=== PATIENT | female | born 1975 | race Caucasian/White ===

== ENCOUNTER 2019-03-26 14:51 | Emergency (ER) | payer MEDICARE ==
--- NOTE | 2019-03-26 16:33 | EDM.PDOC ---
ED HPI GENERAL MEDICAL PROBLEM - General Chief Complaint: Abdominal Pain Stated Complaint: RIGHT SIDE BACK PAIN Time Seen by Provider: 03/26/19 16:33 - History of Present Illness INITIAL COMMENTS - FREE TEXT/NARRATIVE: 43-year-old female presents to the emergency room with abdominal pain. This is been ongoing for several weeks now. [facility] They are trying to get her in for a HIDA scan. Patient's been taken Tums and Pepcid, gets most relief from the Pepcid. Tylenol did not offer any benefit. She denies any fevers or chills some nausea no vomiting. The pain does not seem to be related to eating but she has a diminished appetite. She is not noticed any black or tarry stools. 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: Neurological History: Reports: Seizure Other Neuro History: pseudo tumors Oncologic (Cancer) History: Reports: Malignant Melanoma - Past Surgical History HEENT Surgical History: Reports: Myringotomy w Tube(s) Female Surgical History: Reports: Hysterectomy Social & Family History - Family History Family Medical History: Noncontributory - Tobacco Use Smoking Status *Q: Current Every Day Smoker Years of Tobacco use: 15 Packs/Tins Daily: 0.5 - Caffeine Use Caffeine Use: Reports: Energy Drinks - Recreational Drug Use Recreational Drug Use: No - Living Situation & Occupation Living situation: Reports: , with Spouse, with Family Occupation: Disabled ED ROS GENERAL - Review of Systems Review Of Systems: See Below Constitutional: Reports: No Symptoms HEENT: Reports: No Symptoms Respiratory: Reports: No Symptoms Cardiovascular: Reports: No Symptoms GI/Abdominal: Reports: Abdominal Pain, Anorexia, Nausea. Denies: Constipation, Diarrhea, Vomiting : Reports: No Symptoms Musculoskeletal: Reports: No Symptoms ED EXAM, GI/ABD - Physical Exam Exam: See Below Exam Limited By: No Limitations General Appearance: Alert, No Apparent Distress Head: Atraumatic, Normocephalic Neck: Normal Inspection, Supple, Non-Tender, Full Range of Motion Respiratory/Chest: No Respiratory Distress, Lungs Clear, Normal Breath Sounds Cardiovascular: Regular Rate, Rhythm, No Edema, No Murmur GI/Abdominal Exam: Normal Bowel Sounds, Soft, Tender (Tenderness across the upper abdomen seems to be worse in the epigastric and left upper quadrant areas) . No: Non-Tender, Guarding, Rigid, Rebound Back Exam: Normal Inspection. No: CVA Tenderness (L), CVA Tenderness (R) Course - Vital Signs Last Recorded V/S: Last Vital Signs Temp 37.1 C 03/26/19 15:09 Pulse 61 03/26/19 21:12 Resp 19 03/26/19 21:12 BP 143/98 H 03/26/19 21:12 Pulse Ox 94 L 03/26/19 21:12 - Orders/Labs/Meds Labs: Laboratory Tests 03/26/19 Range/Units 17:40 Urine Color Yellow (Yellow) Urine Appearance Clear (Clear) Urine pH 5.5 (5.0-8.0) Ur Specific [place] > or = 1.030 (1.005-1.030) Urine Protein Negative (Negative) Urine Glucose (UA) Negative (Negative) Urine Ketones 1+ H (Negative) Urine Occult Blood Trace-lysed H (Negative) Urine Nitrite Negative (Negative) Urine Bilirubin Negative (Negative) Urine Urobilinogen 0.2 (0.2-1.0) Ur Leukocyte Esterase Negative (Negative) Urine RBC 0-5 (0-5) /hpf Urine WBC 0-5 (0-5) /hpf Ur Epithelial Cells 0-5 (0-5) /hpf Urine Bacteria Few (FEW) /hpf Urine Mucus Few (FEW) /hpf Meds: Medications Discontinued Medications Generic Name Dose Route Start Last Admin Trade Name Freq PRN Reason Stop Dose Admin Fentanyl 50 mcg 03/26/19 17:40 03/26/19 18:09 Sublimaze IVPUSH 03/26/19 17:41 50 mcg ONETIME ONE Administration Fentanyl 50 mcg 03/26/19 19:42 03/26/19 19:48 Sublimaze IVPUSH 03/26/19 19:43 50 mcg ONETIME ONE Administration Lactated Ringer's 1,000 mls @ 999 mls/hr 03/26/19 17:40 03/26/19 18:08 Ringers, Lactated IV 03/26/19 18:40 999 mls/hr .BOLUS ONE Administration Lactated Ringer's 1,000 mls @ 999 mls/hr 03/26/19 17:42 03/26/19 19:17 Ringers, Lactated IV 03/26/19 18:42 999 mls/hr .BOLUS ONE Administration Ondansetron HCl 4 mg 03/26/19 17:40 03/26/19 18:09 Zofran IVPUSH 03/26/19 17:41 4 mg ONETIME ONE Administration Sucralfate 1 gm 03/26/19 20:44 03/26/19 21:09 Carafate PO 03/26/19 20:45 1 gm ONETIME ONE Administration - Re-Assessments/Exams Free Text/Narrative Re-Assessment/Exam: 03/26/19 20:45 Since exam is most consistent with right upper quadrant pain however she he does have some epigastric and left upper quadrant discomfort with palpation as well a GI cocktail did not seem to help much. Her labs done from [facility] yesterday show white count of 9200 elevated hemoglobin hematocrit at 16.6 and 47.8% respectively slightly elevated mean corpuscular hemoglobin at 32.6 and an elevated red cell distribution width at 48.2 trees are essentially unremarkable anion gap is up at 20 we did give her some IV fluids we were able to get a gallbladder ultrasound done which was essentially unremarkable no wall thickening no stones identified no other abnormalities appreciated. At this point will focus on treatment dyspepsia with the understanding that if this does not help she should have a nuclear medicine bladder study done to look at gallbladder function in the meantime the patient will continue Pepcid 20 mg twice daily and will start Carafate 4 times daily Departure - Departure Time of Disposition: 20:48 Disposition: Home, Self-Care 01 Clinical Impression: Upper abdominal pain - Discharge Information Prescriptions: Acetaminophen/HYDROcodone [Palmer 325-5 MG] 1 tab PO Q6H PRN #10 tablet PRN Reason: Abdominal Pain Sucralfate [Carafate] 1 gm PO ASDIRECTED #60 tablet Instructions: Abdominal Pain, Adult, [id number] Referrals: Mariluz Rivas CPR INSTRUCTOR [Primary Care Provider] - Forms: ED Department Discharge Additional Instructions: Return to the emergency room with any questions problems or worsening symptoms. Use the Carafate as directed. Use the hydrocodone only as needed for pain. Follow-up in the clinic in 2 days for recheck. Sepsis Event Note - Evaluation Sepsis Screening Result: No Definite Risk - Focused Exam Date Exam was Performed: 03/28/19 Time Exam was Performed: 06:28
[2019-03-26] MEDS ORDERED: Lactated Ringers 1,000 ML IV ONE ×2 (17:40→17:42)
[2019-03-26] MEDS ORDERED: Ondansetron 4 MG/2 ML SDV IVPUSH ONE (17:40)
[2019-03-26] MEDS ORDERED: fentaNYL 100 MCG/2 ML SDV IVPUSH ONE ×2 (17:40→19:42)
--- NOTE | 2019-03-26 19:43 | US ---
Limited abdominal ultrasound: Multiple real-time images of the upper right abdomen were obtained. Comparison: No prior abdominal imaging. Liver shows no focal parenchymal abnormality. Gallbladder contains no shadowing gallstones. No gallbladder wall thickening or biliary duct dilatation is seen. Visualized portions of the pancreas are within normal limits. Right kidney shows no hydronephrosis or mass. Right kidney has a length of 10.3 cm. Impression: 1. No abnormality is identified on right upper quadrant abdominal ultrasound exam. Diagnostic code #1 This report was dictated in [place] Standard Time
[2019-03-26] MEDS ORDERED: Sucralfate Suspension 1 GM/10 ML Cup PO ONE (20:44)
[2019-03-26 21:24] VITALS: BP 143/98; PULSE 61
== END 2019-03-26 21:12 | disposition home or self-care (01) ==
LOC: JD.ED 14:51
DX: R10.11 Right upper quadrant pain (principal); R10.13 Epigastric pain; R10.12 Left upper quadrant pain; F17.210 Nicotine dependence, cigarettes, uncomplicated; Z88.5 Allergy status to narcotic agent; Z88.6 Allergy status to analgesic agent
CPT/HCPCS: 76705; 81001; 96361; 96374; 96375; 96376; 99284; A9270; J2405; J3010; J7120; 99283

== ENCOUNTER 2020-10-27 16:02 | Emergency (ER) | payer BC, MEDICARE ==
[2020-10-27 16:20] VITALS: BP 197/101; PULSE 77
[2020-10-27] MEDS: Sodium Chloride 0.9% 10 ML Syringe FLUSH PRN (16:56)
--- NOTE | 2020-10-27 17:31 | CR ---
Chest: PA view of the chest was obtained. Comparison: Prior chest x-ray of 03/25/19. Heart size and mediastinum are within normal limits. Lungs are clear with no acute parenchymal change. No acute osseous abnormality is appreciated. Impression: 1. Nothing acute is seen on PA chest x-ray. Diagnostic code #1
--- NOTE | 2020-10-27 17:31 | CR ---
Abdomen: Supine view of the abdomen was obtained. Comparison: No prior abdominal x-ray is available. Bowel gas pattern is normal. Bony structures are within normal limits for the patient's age. Calcifications are noted within the pelvis most likely representing multiple phleboliths. No discrete soft tissue abnormality is seen. Impression: 1. Nothing acute is seen on supine abdominal x-ray. Diagnostic code #1
--- NOTE | 2020-10-27 18:39 | EDM.PDOC ---
ED HPI GENERAL MEDICAL PROBLEM - General Chief Complaint: Chest Pain Stated Complaint: LEFT SIDE NECK/ARM PAIN AND CHEST TIGHTNESS Time Seen by Provider: 10/27/20 16:19 Source of Information: Reports: Patient History Limitations: Reports: No Limitations - History of Present Illness INITIAL COMMENTS - FREE TEXT/NARRATIVE: 45 old female presents emergency department today with complaints of sudden onset chest pressure with bilateral shoulder pain and periumbilical abdominal pain. Patient states that this started abruptly while she was at work today. She denies any previous cardiac history. She describes the pain in her chest as a pressure just under her sternum. She states that she initially developed periumbilical pain that radiated up into her epigastric area. She also equates onset of the abdominal pain with bilateral shoulder achiness. Patient states she is otherwise healthy and does not take any prescription medications other than medicinal marijuana for which she takes for seizures. She does admit to smoking a pack a day for the past 20 years. She denies any history of hypertension. 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: Neurological History: Reports: Seizure Other Neuro History: pseudotumor cerebri Oncologic (Cancer) History: Reports: Malignant Melanoma - Past Surgical History HEENT Surgical History: Reports: Myringotomy w Tube(s) GI Surgical History: Reports: Appendectomy Female Surgical History: Reports: Hysterectomy Social & Family History - Family History Family Medical History: No Pertinent Family History - Tobacco Use Tobacco Use Status *Q: Current Every Day Tobacco User Years of Tobacco use: 35 Packs/Tins Daily: 1 - Caffeine Use Caffeine Use: Reports: Energy Drinks - Recreational Drug Use Recreational Drug Use: Yes Drug Use in Last 12 Months: Yes Recreational Drug Type: Reports: Marijuana/Hashish Recreational Drug Use Frequency: Daily - Living Situation & Occupation Living situation: Reports: , with Spouse, with Family Occupation: Disabled ED ROS GENERAL - Review of Systems Review Of Systems: Comprehensive ROS is negative, except as noted in HPI. ED EXAM, GENERAL - Physical Exam Exam: See Below Exam Limited By: No Limitations General Appearance: Alert, WD/WN, No Apparent Distress Ears: Normal External Exam, Hearing Grossly Normal Nose: Normal Inspection Throat/Mouth: Normal Inspection, Normal Lips, Normal Voice, No Airway Compromise Head: Atraumatic, Normocephalic Neck: Normal Inspection, Supple Respiratory/Chest: No Respiratory Distress, Lungs Clear, Normal Breath Sounds, No Accessory Muscle Use, Chest Non-Tender Cardiovascular: Normal Peripheral Pulses, Regular Rate, Rhythm, No Edema, No Murmur Peripheral Pulses: 2+: Radial (L), Radial (R) GI/Abdominal: Normal Bowel Sounds, Soft, Non-Tender, No Distention (Female) Exam: Deferred Rectal (Female) Exam: Deferred Back Exam: Normal Inspection Extremities: Normal Inspection, No Pedal Edema Neurological: Alert, Oriented, Normal Cognition Psychiatric: Normal Affect, Normal Mood Skin Exam: Warm, Dry, Intact, Normal Color, No Rash Lymphatic: No Adenopathy #1 Interpretation EKG Date: 10/27/20 Time: 16:17 Rhythm: NSR Rate (Beats/Min): 77 Kimberly: Normal P-Wave: Present QRS: Normal ST-T: Normal QT: Normal Comparison: NA - No Prior EKG EKG Interpretation Comments: Per Dr. Lomeli interpretation: Sinus rhythm at 77 bpm; anteroseptal infarct, age indeterminate Course - Vital Signs Text/Narrative:: As stated above, patient presents with sudden onset periumbilical pain radiating up under her sternum causing a sensation of pressure in her chest. She also notes that she feels like her heart is flip flopping in her chest. Upon exam, patient assessment is unremarkable. She states that she has a dull pressure noted to the middle of her chest that has since eased up. I have ordered labs to include a CBC, CMP, magnesium level, troponin, EKG and a portable chest x- ray. Last Recorded V/S: Last Vital Signs Temp 97.8 F 10/27/20 16:18 Pulse 77 10/27/20 16:18 Resp 16 10/27/20 16:18 BP 197/101 H 10/27/20 16:18 Pulse Ox 98 10/27/20 16:18 - Orders/Labs/Meds Orders: Active Orders 24 hr Category Date Time Status UA W/MICROSCOPIC [URIN] Stat Lab 10/27/20 18:26 Results Sodium Chloride 0.9% [Saline Flush] Med 10/27/20 16:39 Active 10 ml FLUSH ASDIRECTED PRN Saline Lock Insert [OM.PC] Stat Oth 10/27/20 16:39 Ordered Medication Orders Sodium Chloride (Sodium Chloride 0.9% 10 Ml Syringe) 10 ml FLUSH ASDIRECTED PRN PRN Reason: Keep Vein Open Last Admin: 10/27/20 16:56 Dose: 10 ml Documented by: JALEEL Labs: Laboratory Tests 10/27/20 10/27/20 10/27/20 Range/Units 16:30 16:30 18:26 WBC 4.20 (3.98-10.04) K/mm3 RBC 4.65 (3.98-5.22) M/mm3 Hgb 14.4 (11.2-15.7) gm/dl Hct 43.0 (34.1-44.9) % MCV 92.5 D (79.4-94.8) fl MCH 31.0 (25.6-32.2) pg MCHC 33.5 (32.2-35.5) g/dl RDW Std Deviation 45.5 (36.4-46.3) fL Plt Count 225 (182-369) K/mm3 MPV 11.4 (9.4-12.3) fl Neut % (Auto) 35.3 (34.0-71.1) % Lymph % (Auto) 57.1 H (19.3-51.7) % [place] % (Auto) 6.9 (4.7-12.5) % Eos % (Auto) 0.5 L (0.7-5.8) Baso % (Auto) 0.2 (0.1-1.2) % Neut # (Auto) 1.48 L (1.56-6.13) K/mm3 Lymph # (Auto) 2.40 (1.18-3.74) K/mm3 [place] # (Auto) 0.29 (0.24-0.36) K/mm3 Eos # (Auto) 0.02 L (0.04-0.36) K/mm3 Baso # (Auto) 0.01 (0.01-0.08) K/mm3 Sodium 143 (136-145) mEq/L Potassium 3.4 L (3.5-5.1) mEq/L Chloride 105 (98-107) mEq/L Carbon Dioxide 24 (21-32) mEq/L Anion Gap 17.4 H (5-15) BUN 11 (7-18) mg/dL Creatinine 0.6 (0.55-1.02) mg/dL Est Cr Clr Drug Dosing 90.29 mL/min Estimated GFR (MDRD) > 60 (>60) mL/min BUN/Creatinine Ratio 18.3 H (14-18) Glucose 96 (70-99) mg/dL Calcium 8.7 (8.5-10.1) mg/dL Magnesium 1.9 (1.8-2.4) mg/dL Total Bilirubin 0.2 (0.2-1.0) mg/dL AST 25 (15-37) U/L ALT 41 (14-59) U/L Alkaline Phosphatase 53 (46-116) U/L Troponin I < 0.017 (0.00-0.056) ng/mL C-Reactive Protein < 0.2 (<1.0) mg/dL Total Protein 7.7 (6.4-8.2) g/dl Albumin 4.2 (3.4-5.0) g/dl Globulin 3.5 gm/dL Albumin/Globulin Ratio 1.2 (1-2) TSH 3rd Generation 3.159 (0.358-3.74) uIU/mL Urine Color Yellow (Yellow) Urine Appearance Clear (Clear) Urine pH 6.0 (5.0-8.0) Ur Specific [place] > or = 1.030 (1.005-1.030) Urine Protein Negative (Negative) Urine Glucose (UA) Negative (Negative) Urine Ketones 3+ H (Negative) Urine Occult Blood Trace-intact H (Negative) Urine Nitrite Negative (Negative) Urine Bilirubin Negative (Negative) Urine Urobilinogen 0.2 (0.2-1.0) Ur Leukocyte Esterase Negative (Negative) Meds: Medications Generic Name Dose Route Start Last Admin Trade Name Freq PRN Reason Stop Dose Admin Sodium Chloride 10 ml 10/27/20 16:39 10/27/20 16:56 Sodium Chloride 0.9% 10 Ml Syringe FLUSH 10 ml ASDIRECTED PRN Administration Keep Vein Open Discontinued Medications Generic Name Dose Route Start Last Admin Trade Name Airam PRN Reason Stop Dose Admin Al Hydroxide/Mg Hydroxide 30 0 ml 10/27/20 18:33 10/27/20 18:41 ml/ Lidocaine HCl 15 ml PO 10/27/20 18:34 45 ml ONETIME ONE Administration Potassium Chloride 40 meq 10/27/20 18:34 10/27/20 18:42 Potassium Chloride 20 Meq Tab.Er PO 10/27/20 18:35 40 meq ONETIME ONE Administration - Re-Assessments/Exams Free Text/Narrative Re-Assessment/Exam: 10/27/20 19:07 Hematology reveals a WBC of 4.20, hemoglobin 14.4, hematocrit 43.0, platelet count 225 Chemistry reveals a sodium of 143, potassium 3.4, carbon dioxide 24, anion gap 17.4, BUN 11, creatinine 0.6, glucose 96, magnesium 1.9, troponin less than 0.017, C-reactive protein less than 0.2 Urinalysis shows 3+ ketones and a trace of occult blood Radiologist impression PA view of the chest: 1. Nothing acute is seen on PA chest x-ray Radiologist impression supine view of the abdomen: 1. Nothing acute is seen on supine abdominal x-ray. I did discuss the lab results with the patient and I suggest she is having an esophageal spasm. I am going to order a GI cocktail to see if this helps with the discomfort. Patient states that she needs to get home to her kids and feed them supper. I will let her be discharged home with recommendations that if the GI cocktail relieves her discomfort that she start taking either Prevacid or Prilosec OTC daily and to follow-up with her primary care provider. She was agreeable to this plan. Departure - Departure Time of Disposition: 18:34 Disposition: Home, Self-Care 01 Condition: Good Clinical Impression: Atypical chest pain Referrals: Mariluz Rivas AREA CAPTAIN [Primary Care Provider] - Forms: ED Department Discharge Additional Instructions: You were seen in the emergency department today with complaints of chest pressure, bilateral shoulder pain and abdominal pain. Full cardiac work-up was completed which included labs, chest x-ray and an EKG. these were all unremarkable except your potassium level was slightly low. You were given a combination of medicines of viscous lidocaine with Maalox to see if that helps the discomfort in your chest. If the discomfort resolves from this medication, it is recommended that you start taking Prilosec or Protonix daily. Both of these medications are sold [id number]. You were given potassium pill while in the emergency department. Recommend you take this with your dinner meal this evening as your potassium levels were slightly low. Try to eat a diet rich in potassium fluids such as bananas or green leafy vegetables. Should your condition worsen or change, do not hesitate returning to the emergency department Sepsis Event Note (ED) - Evaluation Sepsis Screening Result: No Definite Risk - Focused Exam Vital Signs: Vital Signs Temp Pulse Resp BP Pulse Ox 10/27/20 16:18 97.8 F 77 16 197/101 H 98 - My Orders Last 24 Hours: My Active Orders 10/27/20 16:39 Sodium Chloride 0.9% [Saline Flush] 10 ml FLUSH ASDIRECTED PRN Saline Lock Insert [OM.PC] Stat 10/27/20 18:26 UA W/MICROSCOPIC [URIN] Stat - Assessment/Plan Last 24 Hours: My Active Orders 10/27/20 16:39 Sodium Chloride 0.9% [Saline Flush] 10 ml FLUSH ASDIRECTED PRN Saline Lock Insert [OM.PC] Stat 10/27/20 18:26 UA W/MICROSCOPIC [URIN] Stat
[2020-10-27] MEDS: Alum Hydrox/Mag Hydrox/Simeth 30 ML, Lidocaine 2% 15 ML PO ONE ×2 (18:41)
[2020-10-27] MEDS: Potassium Chloride 20 MEQ Tab.ER PO ONE (18:42)
== END 2020-10-27 18:55 | disposition home or self-care (01) ==
LOC: JD.ED 16:02
DX: R07.89 Other chest pain (principal); Z88.5 Allergy status to narcotic agent; Z88.8 Allergy status to other drugs, medicaments and biological substances; Z72.0 Tobacco use
CPT/HCPCS: 36415; 71045; 74018; 80053; 81001; 83735; 84443; 84484; 85025; 86140; 93005; 99285; A9270; 93010; 99284